=== PATIENT | male | born 1975 | race African-American/Black ===

== ENCOUNTER 2017-03-16 07:19 | Emergency (ER) | payer SELFPAY ==
[~2017-03-16] VITALS: Ht 180.3 cm; Wt 90.7 kg
[~2017-03-16 07:19] MED LIST: CIPROFLOXACIN500 M2 ORAL; IBUPROFEN600 MG ORAL; IBUPROFEN800 MG ORAL; MILK OF MA400 MG/51 ORAL; NEXIUM40 M2 ORAL; NKM; TIZANIDINE HCL4 MG ORAL; TRAMADOL HCL50 MG ORAL
--- NOTE | 2017-03-16 08:08 | Emergency Room Report ---
History of Present Illness General Chief Complaint: Pain Source: Patient Present Illness HPI 42-year-old male, history of appendectomy, presenting with right groin pain for 2 days. Patient states that he has had intense nausea, which exacerbates the pain. No active vomiting. No constipation or diarrhea. Complains of chills but no fever. Please see her right groin area for the pain, sharp, intermittent. States that his urine looked slightly darker than normal. Denies any flank pain, no penile discharge. Denies seeing any bulge Allergies: Coded Allergies: No Known Allergies (Unverified , 12/22/12) Patient History Past Medical History: see triage record Past Surgical History: none Pertinent Family History: none Reviewed Nursing Documentation: PMH: Agreed, PSxH: Agreed Nursing Documentation-PMH Past Medical History: No History, Except For Hx Cardiac Problems: Yes - heart valve surgery Hx Hypertension: No Hx Pacemaker: No Hx Asthma: No Hx COPD: No Hx Diabetes: No Hx Cancer: No Hx Gastrointestinal Problems: No Hx Dialysis: No History Of Psychiatric Problem: No Hx Neurological Problems: No Hx Cerebrovascular Accident: No Hx Seizures: No Review of Systems All Other Systems: negative except mentioned in HPI Physical Exam Vital Signs Date Time Temp Pulse Resp B/P (MAP) Pulse Ox O2 Delivery O2 Flow Rate FiO2 03/16/17 07:29 98.4 91 16 122/80 97 Room Air Sp02 EP Interpretation: reviewed, normal General Appearance: alert, GCS 15, non-toxic, moderate distress Head: normocephalic, atraumatic Eyes: bilateral eye normal inspection, bilateral eye PERRL, bilateral eye EOMI ENT: normal ENT inspection, normal pharynx, normal voice, moist mucus membranes Neck: normal inspection, full range of motion, supple Respiratory: normal inspection, lungs clear, normal breath sounds, no respiratory distress, no retraction, no wheezing, speaking full sentences, chest symmetrical Cardiovascular #1: normal inspection, regular rate, rhythm, no edema, normal capillary refill Cardiovascular #2: 2+ radial (R), 2+ radial (L) Gastrointestinal: other - mild suprapubic tenderness. no guarding or rigidity. nontender all other abdomen Genitourinary: no CVA tenderness, penis normal, scrotum normal, other - TTP R groin area, no signs of cellulitis, no fluctuance noted. no penile DC Musculoskeletal: normal inspection, back normal, normal range of motion, non- tender Neurologic: normal inspection, alert, oriented x3, responsive, motor strength/ tone normal, sensory intact, normal gait, speech normal Psychiatric: normal inspection, judgement/insight normal, memory normal Skin: normal inspection, normal color, no rash, warm/dry, well hydrated, normal turgor Medical Decision Making Diagnostic Impression: Primary Impression: Right groin pain ER Course 42-year-old male with right groin/abdominal pain, with nausea Differential Diagnosis: diverticulitis, SBO, UTI/pyelo, deep intra-abdominal abscess, hernia Plan: Basic labs, ua pain control, IVF CT abdopelvis ER course: Patient has remained stable during ED stay. Pain improved. CT neg Repeat abdominal exam is nontender. Tolerating PO Disposition: Patient is to be discharged to home. Patient is instructed to follow up with their primary care doctor within 5 days. May need to see water/wastewater engineer as well Strict return precautions discussed with patient such as fever, chills, worsening/severe abdominal pain, nausea, vomiting, black or bloody stools, which may indicate severe illness. Patient verbalizes understanding and agrees with plan. Please note that this Emergency Department Report was dictated using [employer] home admissions director technology software, occasionally this can lead to erroneous entry secondary to interpretation by the dictation equipment Laboratory Tests Test 03/16/17 08:00 03/16/17 08:45 White Blood Count 6.9 K/UL (4.8-10.8) Red Blood Count 5.48 M/UL (4.70-6.10) Hemoglobin 16.7 G/DL (14.2-18.0) Hematocrit 49.7 % (42.0-52.0) Mean Corpuscular Volume 91 FL (80-99) Mean Corpuscular Hemoglobin 30.4 PG (27.0-31.0) Mean Corpuscular Hemoglobin Concent 33.6 G/DL (32.0-36.0) Red Cell Distribution Width 11.1 % (11.6-14.8) L Platelet Count 273 K/UL (150-450) Mean Platelet Volume 6.3 FL (6.5-10.1) L Neutrophils (%) (Auto) 69.5 % (45.0-75.0) Lymphocytes (%) (Auto) 19.8 % (20.0-45.0) L Monocytes (%) (Auto) 7.8 % (1.0-10.0) Eosinophils (%) (Auto) 1.6 % (0.0-3.0) Basophils (%) (Auto) 1.3 % (0.0-2.0) Sodium Level 140 MMOL/L (136-145) Potassium Level 3.5 MMOL/L (3.5-5.1) Chloride Level 104 MMOL/L (98-107) Carbon Dioxide Level 23 MMOL/L (21-32) Anion Gap 13 mmol/L (5-15) Blood Urea Nitrogen 15 mg/dL (7-18) Creatinine 1.3 MG/DL (0.55-1.30) Estimate Glomerular Filtration Rate > 60 mL/min (>60) Glucose Level 92 MG/DL (74-106) Calcium Level 9.3 MG/DL (8.5-10.1) Total Bilirubin 1.2 MG/DL (0.2-1.0) H Direct Bilirubin 0.2 MG/DL (0.0-0.3) Aspartate Amino Transferase (AST) 21 U/L (15-37) Alanine Aminotransferase (ALT) 14 U/L (12-78) Alkaline Phosphatase 86 U/L (46-116) Total Protein 8.3 G/DL (6.4-8.2) H Albumin 4.5 G/DL (3.4-5.0) Globulin 3.8 g/dL Albumin/Globulin Ratio 1.2 (1.0-2.7) Lipase 62 U/L (73-393) L Urine Color Yellow Urine Appearance Clear Urine pH 5 (4.5-8.0) Urine Specific [place] 1.025 (1.005-1.035) Urine Protein 2+ (NEGATIVE) H Urine Glucose (UA) Negative (NEGATIVE) Urine Ketones 3+ (NEGATIVE) H Urine Occult Blood 1+ (NEGATIVE) H Urine Nitrite Negative (NEGATIVE) Urine Bilirubin 1+ (NEGATIVE) H Urine Ictotest Negative Urine Urobilinogen 4 MG/DL (0.0-1.0) H Urine Leukocyte Esterase 1+ (NEGATIVE) H Urine RBC 2-4 /HPF (0 - 0) H Urine WBC 2-4 /HPF (0 - 0) Urine Squamous Epithelial Cells Occasional /LPF Urine Bacteria Few /HPF (NONE) Urine Mucus Moderate /LPF (NONE/OCC) H CT/MRI/US Diagnostic Results CT/MRI/US Diagnostic Results : Imaging Test Ordered: CT abdo pelvis Impression Findings: Hiatal hernia is present. The lung bases are clear. Gallbladder is unremarkable. Solid organs are unremarkable. There is no hydronephrosis identified. No definite renal stones identified although intravenous contrast was given for the study. As such a small nonobstructive stones may be difficult to see. There is no free fluid. No evidence of bowel obstruction. The appendix is not definitely seen but there are no secondary signs of acute appendicitis. The urinary bladder is nondistended. IMPRESSION: No acute findings identified. Incidentals as above Last Vital Signs Date Time Temp Pulse Resp B/P (MAP) Pulse Ox O2 Delivery O2 Flow Rate FiO2 03/16/17 07:29 98.4 91 16 122/80 97 Room Air Disposition: HOME, SELF-CARE Condition: Improved Scripts Ondansetron Odt* (ZOFRAN ODT*) 4 Mg Tab.rapdis 4 MG ORAL Q6H Y for Nausea & Vomiting, #15 TAB 0 Refills Prov: Xiao Benoit M.D. 03/16/17 Referrals: NOT CHOSEN KOREY/,REFERRING (PCP) Xiao Benoit M.D. Mar 16, 2017 08:08
[2017-03-16 08:22] LABS: BASOPHILS % (AUTO) 1.3 % (0.0-2.0); EOSINOPHILS % (AUTO) 1.6 % (0.0-3.0); HEMATOCRIT 49.7 % (42.0-52.0); HEMOGLOBIN 16.7 G/DL (14.2-18.0); LYMPHOCYTES % (AUTO) 19.8 % (20.0-45.0); MEAN CORPUSCULAR VOLUME 91 FL (80-99); MONOCYTES % (AUTO) 7.8 % (1.0-10.0); NEUTROPHILS % (AUTO) 69.5 % (45.0-75.0); PLATELET COUNT 273 K/UL (150-450); RED BLOOD COUNT 5.48 M/UL (4.70-6.10); RED CELL DISTRIBUTION WIDTH 11.1 % (11.6-14.8); WHITE BLOOD COUNT 6.9 K/UL (4.8-10.8)
[2017-03-16 08:32] LABS: ANION GAP 13 mmol/L (5-15); BLOOD UREA NITROGEN 15 mg/dL (7-18); CALCIUM 9.3 MG/DL (8.5-10.1); CARBON DIOXIDE 23 MMOL/L (21-32); CHLORIDE 104 MMOL/L (98-107); CREATININE 1.3 MG/DL (0.55-1.30); POTASSIUM 3.5 MMOL/L (3.5-5.1); SODIUM 140 MMOL/L (136-145)
[2017-03-16 08:43] LABS: ALANINE AMINOTRANSFERASE 14 U/L (12-78); ALBUMIN 4.5 G/DL (3.4-5.0); ALBUMIN/GLOBULIN RATIO 1.2 (1.0-2.7); ALKALINE PHOSPHATASE 86 U/L (46-116); ASPARTATE AMINO TRANSFERASE 21 U/L (15-37); BILIRUBIN,TOTAL 1.2 MG/DL (0.2-1.0)
[2017-03-16 08:44] LABS: BILIRUBIN,DIRECT 0.2 MG/DL (0.0-0.3)
[2017-03-16 09:24] LABS: APPEARANCE,URINE CLEAR; BILIRUBIN, URINE 1+ (NEGATIVE); GLUCOSE, URINE (UA) NEGATIVE (NEGATIVE); KETONES,URINE 3+ (NEGATIVE); LEUKOCYTE ESTERASE ,URINE 1+ (NEGATIVE); NITRITE,URINE NEGATIVE (NEGATIVE); PH,URINE 5 (4.5-8.0); PROTEIN,URINE 2+ (NEGATIVE); UROBILINOGEN,URINE 4 MG/DL (0.0-1.0)
[2017-03-16 09:33] LABS: COLOR,URINE YELLOW
--- NOTE | 2017-03-16 09:36 | Diagnostic Imaging Report ---
Indication: Abdominal pain Technique: Continuous helical transaxial imaging of the abdomen and pelvis was obtained from the lung bases to the pubic symphysis during intravenous contrast administration. Coronal 2-D reformats were also obtained. Study obtained in a Siemens sensation [address] Automatic Exposure Control was utilized. Total Dose length Product (DLP): 1018.[address] Dose Index Volume (CTDIvol): 18.4 mGy Comparison: None Findings: Hiatal hernia is present. The lung bases are clear. Gallbladder is unremarkable. Solid organs are unremarkable. There is no hydronephrosis identified. No definite renal stones identified although intravenous contrast was given for the study. As such a small nonobstructive stones may be difficult to see. There is no free fluid. No evidence of bowel obstruction. The appendix is not definitely seen but there are no secondary signs of acute appendicitis. The urinary bladder is nondistended. IMPRESSION: No acute findings identified. Incidentals as above The CT scanner at [facility] is accredited by the [employer] and the scans are performed using dose optimization techniques as appropriate to a performed exam including Automatic Exposure control.
[2017-03-16] MEDS ORDERED: ZOFRAN ODT4 MG ORAL (10:19)
[2017-03-16 10:38] VITALS: BP 116/72
[2017-03-16 10:39] VITALS: BP 116/72
== END 2017-03-16 10:39 | disposition home or self-care (01) ==
LOC: EMR 07:42
DX: R10.31 Right lower quadrant pain (principal); R11.0 Nausea; K44.9 Diaphragmatic hernia without obstruction or gangrene
CPT/HCPCS: 36415; 74177; 80053; 81003; 82248; 83690; 85025; 96374; 99284; J2405; Q9967

== ENCOUNTER 2018-02-17 22:14 | Emergency (ER) | payer BC, OTHER ==
[~2018-02-17] VITALS: Ht 177.8 cm; Wt 113.4 kg
[~2018-02-17 22:14] MED LIST changes: +ZOFRAN ODT4 MG ORAL
[2018-02-17 22:25] VITALS: BP 116/81
[2018-02-17] MEDS: Solu-MEDROL 125mg Inj IVP ONE (22:30)
[2018-02-17] MEDS: DiphenhydrAMINE 50mg/ml Inj IVP ONE (22:30)
--- NOTE | 2018-02-17 22:31 | Emergency Room Report ---
History of Present Illness General Chief Complaint: Sore Throat Source: Patient Present Illness HPI Is a 43-year-old male with a history of reflux. He presents with chief complaint of sore throat difficulty breathing. Onset was acute and occurred about 2 hours ago. This occurred after eating a chicken salad from a supermarket. He said his nose felt very stuffy. He has stuffiness and swelling of his eyelids. Also has some difficulty breathing with sore throat. He felt some swelling to the oropharynx. No nausea no vomiting. No fever or chills. Denies any other complaint. Had this type of chicken salad before without any difficulty. Allergies: Coded Allergies: No Known Allergies (Unverified , 12/22/12) Patient History Past Medical History: see triage record, old chart reviewed Past Surgical History: none Pertinent Family History: none Social History: Denies: smoking Immunizations: other Reviewed Nursing Documentation: PMH: Agreed; PSxH: Agreed Nursing Documentation-PMH Past Medical History: No History, Except For Hx Cardiac Problems: Yes - heart valve surgery Hx Hypertension: No Hx Pacemaker: No Hx Asthma: No Hx COPD: No Hx Diabetes: No Hx Cancer: No Hx Gastrointestinal Problems: No Hx Dialysis: No Hx Neurological Problems: No Hx Cerebrovascular Accident: No Hx Seizures: No Review of Systems Eye: Denies: eye pain, blurred vision ENT: Reports: nose congestion; Denies: ear pain, throat swelling Respiratory: Reports: shortness of breath; Denies: cough Cardiovascular: Denies: chest pain, palpitations Gastrointestinal: Denies: abdominal pain, diarrhea, nausea, vomiting Musculoskeletal: Denies: back pain, joint pain Skin: Denies: rash Neurological: Denies: headache, numbness Endocrine: Denies: increased thirst, increased urine Hematologic/Lymphatic: Denies: easy bruising All Other Systems: negative except mentioned in HPI Physical Exam Vital Signs Date Time Temp Pulse Resp B/P (MAP) Pulse Ox O2 Delivery O2 Flow Rate FiO2 02/17/18 22:19 97.9 85 16 126/81 97 Room Air vitals normal Sp02 EP Interpretation: reviewed, normal General Appearance: well appearing, no apparent distress, alert Head: normocephalic, atraumatic Eyes: bilateral eye PERRL, bilateral eye EOMI, bilateral eye other - Puffiness to both eyelids ENT: hearing grossly normal, normal pharynx, other - Mild edema to the soft palate Neck: full range of motion, supple, no meningismus, other - No stridor Respiratory: chest non-tender, lungs clear, normal breath sounds Cardiovascular #1: regular rate, rhythm, no murmur Gastrointestinal: normal bowel sounds, non tender, no mass, no organomegaly, no bruit, non-distended Musculoskeletal: back normal, gait/station normal, normal range of motion Neurologic: alert, oriented x3 Psychiatric: mood/affect normal Skin: warm/dry Medical Decision Making Diagnostic Impression: Primary Impression: Food allergy ER Course Patient with acute swelling to the facial area, congestion and sorethroat. This occurred after eating chicken salad. This is most likely a food allergy. He is better after steroid and Benadryl. No evidence of anaphylaxis. No evidence of respiratory distress or stridor. We'll discharge home. Last Vital Signs Date Time Temp Pulse Resp B/P (MAP) Pulse Ox O2 Delivery O2 Flow Rate FiO2 02/17/18 22:19 97.9 85 16 126/81 97 Room Air Status: improved Disposition: HOME, SELF-CARE Condition: Stable Scripts Prednisone* (PREDNISONE*) 20 Mg Tablet 40 MG ORAL DAILY, #6 TAB Prov: Albino Black MD 02/17/18 Diphenhydramine Hcl* (BENADRYL*) 25 Mg Capsule 50 MG ORAL Q6H PRN for Itching, #30 CAP Prov: Albino Black MD 02/17/18 Additional Instructions: Follow-up with your Dr. in 7 days. You may need for allergy testing. Return if symptom worsen. Albino Black MD Feb 17, 2018 22:31
[2018-02-17] MEDS ORDERED: PREDNISONE20 MG ORAL (23:27)
[2018-02-17] MEDS ORDERED: BENADRYL25 MG ORAL (23:27)
[2018-02-17 23:33] VITALS: BP 116/81
== END 2018-02-17 23:33 | disposition home or self-care (01) ==
LOC: EMR 22:34
DX: T78.1XXA Other adverse food reactions, not elsewhere classified, initial encounter (principal); R68.89 Other general symptoms and signs; X58.XXXA Exposure to other specified factors, initial encounter
CPT/HCPCS: 96374; 96375; 99284; J1200; J2930

== ENCOUNTER 2018-07-06 23:45 | Emergency (ER) | payer BC, OTHER ==
[~2018-07-06] VITALS: Ht 177.8 cm; Wt 117.9 kg
[~2018-07-06 23:45] MED LIST changes: +BENADRYL25 MG ORAL; +PREDNISONE20 MG ORAL
[2018-07-07 00:03] VITALS: BP 143/80
--- NOTE | 2018-07-07 00:05 | NUR ---
ED Nurse Note: Patient walked in to ER from home, c/o pain in both eyes. AAO x4, VSS.
--- NOTE | 2018-07-07 00:09 | NUR ---
ED Nurse Note: ER MD at bed side
--- NOTE | 2018-07-07 00:11 | NUR ---
ED Nurse Note: Unable to check visual acuity, due to patient unable open his eyes.
[2018-07-07] MEDS ORDERED: Tetracaine 0.5% Opth 4ml Soln LEFT EYE ONE (00:15)
[2018-07-07] MEDS ORDERED: Tetracaine 0.5% Opth 4ml Soln RIGHT EYE ONE (00:15)
[2018-07-07] MEDS ORDERED: HYDROCODON-ACE1 EA15 ORAL (00:16)
[2018-07-07] MEDS ORDERED: POLYTRIM OP SOL10 ML OPHTHALM (00:16)
[2018-07-07] MEDS ORDERED: IBUPROFEN600 MG ORAL (00:16)
--- NOTE | 2018-07-07 00:16 | Emergency Room Report ---
History of Present Illness General Chief Complaint: Eye Problems Source: Patient Present Illness HPI Is a 43-year-old male who presents with chief complaint of bilateral eye pain and injection. Onset about an hour to 2 hours ago. He said it was eye was irritated and injected. He used some Visine in it got worse. Worse with opening his eyes. Eyes watery. No nausea no vomiting but no fever or chills. No cough or congestion. Pain is 10 out of 10. Allergies: Coded Allergies: No Known Allergies (Unverified , 12/22/12) Patient History Past Medical History: see triage record, old chart reviewed Past Surgical History: none Pertinent Family History: none Social History: Denies: smoking Immunizations: other Reviewed Nursing Documentation: PMH: Agreed; PSxH: Agreed Nursing Documentation-PMH Hx Cardiac Problems: Yes - heart valve surgery Hx Hypertension: No Hx Pacemaker: No Hx Asthma: No Hx COPD: No Hx Diabetes: No Hx Cancer: No Hx Gastrointestinal Problems: No Hx Dialysis: No Hx Neurological Problems: No Hx Cerebrovascular Accident: No Hx Seizures: No Review of Systems Eye: Reports: eye pain; Denies: blurred vision ENT: Denies: ear pain, nose congestion, throat swelling Respiratory: Denies: cough, shortness of breath Cardiovascular: Denies: chest pain, palpitations Gastrointestinal: Denies: abdominal pain, diarrhea, nausea, vomiting Musculoskeletal: Denies: back pain, joint pain Skin: Denies: rash Neurological: Denies: headache, numbness Endocrine: Denies: increased thirst, increased urine Hematologic/Lymphatic: Denies: easy bruising All Other Systems: negative except mentioned in HPI Physical Exam Vital Signs Date Time Temp Pulse Resp B/P (MAP) Pulse Ox O2 Delivery O2 Flow Rate FiO2 07/06/18 23:53 97.5 102 18 95 Room Air 07/07/18 00:03 143/80 vitals with high blood pressure Sp02 EP Interpretation: reviewed, normal General Appearance: well appearing, no apparent distress, alert Head: normocephalic, atraumatic Eyes: bilateral eye PERRL, bilateral eye EOMI, bilateral eye other - Both eyes show injected sclera and conjunctiva. Pupil reactive. No foreign body. Negative Neha sign. ENT: hearing grossly normal, normal pharynx Neck: full range of motion, supple, no meningismus Respiratory: chest non-tender, lungs clear, normal breath sounds Cardiovascular #1: regular rate, rhythm, no murmur Gastrointestinal: normal bowel sounds, non tender, no mass, no organomegaly, no bruit, non-distended Musculoskeletal: back normal, gait/station normal, normal range of motion Psychiatric: mood/affect normal Skin: warm/dry Medical Decision Making Diagnostic Impression: Primary Impression: Conjunctivitis, acute Qualified Codes: H10.33 - Unspecified acute conjunctivitis, bilateral Additional Impression: Acute eye pain ER Course Patient with bilateral conjunctivitis. Most likely viral in nature. Could also be connective-tissue disease. No evidence of foreign body. No evidence of any globe rupture. We'll discharge home. Last Vital Signs Date Time Temp Pulse Resp B/P (MAP) Pulse Ox O2 Delivery O2 Flow Rate FiO2 07/07/18 00:03 97.5 18 143/80 95 Room Air 07/06/18 23:53 102 Status: improved Disposition: HOME, SELF-CARE Condition: Stable Scripts Polymyxin/Trimethoprim (Polytrim Eye Drops) 10 Ml Drops 2 DROP OPHTHALM THREE TIMES A DAY, #1 EA Instill in affected eye for 7 days Prov: Albino Black MD 07/07/18 Ibuprofen* (MOTRIN*) 600 Mg Tablet 600 MG ORAL THREE TIMES A DAY, #30 TAB 0 Refills Prov: Albino Black MD 07/07/18 Hydrocodone/Acetaminophen 5-325* (HYDROCODONE/ACETAMINOPHEN 5-325*) 1 Each Tablet 1 TAB ORAL Q6H PRN for For Pain, #10 TAB 0 Refills Prov: Albino Black MD 07/07/18 Patient Instructions: Bacterial Conjunctivitis, [id number] Additional Instructions: Do not rub eyes. Do not use Visine. Follow-up with your doctor in 2-3 days if not better. May knee referred to see an eye doctor. Return if worse. Albino Black MD July 07, 2018 00:16
[2018-07-07 00:17] VITALS: BP 143/80
--- NOTE | 2018-07-07 00:18 | NUR ---
ED Nurse Note: Pt cleared by health care Provider for discharge. DC instructions/prescription was given and explained to pt and verbalized understanding of teachings. All medical deviecs such as ID band removed. Pt is AAO x4, ambulatory and left with all personal belongings.
[2018-07-07] MEDS ORDERED: HYDROcodone/Acetamin 5/325 tab ORAL ONE (00:30)
== END 2018-07-07 00:17 | disposition home or self-care (01) ==
LOC: EMR 23:59
DX: H10.33 Unspecified acute conjunctivitis, bilateral (principal); H57.13 Ocular pain, bilateral
CPT/HCPCS: 99282

== ENCOUNTER 2019-01-27 13:16 | Emergency (ER) | payer BC, OTHER ==
[~2019-01-27] VITALS: Ht 177.8 cm; Wt 113.4 kg
[~2019-01-27 13:16] MED LIST changes: +HYDROCODON-ACE1 EA15 ORAL; +POLYTRIM OP SOL10 ML OPHTHALM
[2019-01-27 13:40] VITALS: BP 151/90
--- NOTE | 2019-01-27 13:40 | NUR ---
ED Nurse Note:pt. c/o urinary burning for 1 week, urine sent to labs
[2019-01-27 13:46] LABS: APPEARANCE,URINE CLEAR; BILIRUBIN, URINE NEGATIVE (NEGATIVE); GLUCOSE, URINE (UA) NEGATIVE (NEGATIVE); KETONES,URINE NEGATIVE (NEGATIVE); LEUKOCYTE ESTERASE ,URINE 1+ (NEGATIVE); NITRITE,URINE NEGATIVE (NEGATIVE); PH,URINE 6 (4.5-8.0); PROTEIN,URINE NEGATIVE (NEGATIVE); UROBILINOGEN,URINE 1 MG/DL (0.0-1.0)
[2019-01-27 13:53] LABS: COLOR,URINE YELLOW
--- NOTE | 2019-01-27 14:07 | Emergency Room Report ---
History of Present Illness General Chief Complaint: Male Urogenital Problems Source: Patient Present Illness HPI 44-year-old male with no significant past medical history here complaining of 1 week of urinary frequency and urgency and dysuria. Denies hematuria, suprapubic pain, scrotal pain, flank pain, fever and chills, nausea vomiting. Reports that he is sexually active with the same partner and denies penile discharge. Denies chest pain, shortness of breath, diffuse abdominal pain, palpitation, no other associated symptoms. Has not taken medication for symptom relief. Allergies: Coded Allergies: No Known Allergies (Unverified , 12/22/12) Patient History Past Medical History: see triage record Past Surgical History: unable to obtain Pertinent Family History: none Immunizations: UTD Reviewed Nursing Documentation: PMH: Agreed; PSxH: Agreed Nursing Documentation-PMH Past Medical History: No History, Except For Hx Cardiac Problems: Yes - heart valve surgery Hx Hypertension: No Hx Pacemaker: No Hx Asthma: No Hx COPD: No Hx Diabetes: No Hx Cancer: No Hx Gastrointestinal Problems: No Hx Dialysis: No Hx Neurological Problems: No Hx Cerebrovascular Accident: No Hx Seizures: No Review of Systems All Other Systems: negative except mentioned in HPI Physical Exam Vital Signs Date Time Temp Pulse Resp B/P (MAP) Pulse Ox O2 Delivery O2 Flow Rate FiO2 01/27/19 13:21 98.4 110 17 151/90 (110) 99 Room Air Sp02 EP Interpretation: reviewed, normal General Appearance: no apparent distress, alert, GCS 15, non-toxic Head: normocephalic, atraumatic Eyes: bilateral eye normal inspection, bilateral eye PERRL ENT: hearing grossly normal, normal pharynx, no angioedema, normal voice Neck: full range of motion, supple/symm/no masses Respiratory: chest non-tender, lungs clear, normal breath sounds, no wheezing, speaking full sentences Cardiovascular #1: regular rate, rhythm, no edema, no murmur Gastrointestinal: non tender, soft, no mass, no guarding Genitourinary: no CVA tenderness Musculoskeletal: back normal Neurologic: alert, motor strength/tone normal, oriented x3, sensory intact, responsive, speech normal Psychiatric: judgement/insight normal, memory normal, mood/affect normal, no suicidal/homicidal ideation Skin: no rash Lymphatic: no adenopathy Medical Decision Making PA Attestation All my diagnosis and treatment plans were reviewed ad discussed with my supervising physician Dr. Levin Diagnostic Impression: Primary Impression: UTI (urinary tract infection) ER Course 44-year-old male with no significant past medical history here complaining of 1 week of urinary frequency and urgency and dysuria. Denies hematuria, suprapubic pain, scrotal pain, flank pain, fever and chills, nausea vomiting. Reports that he is sexually active with the same partner and denies penile discharge. Denies chest pain, shortness of breath, diffuse abdominal pain, palpitation, no other associated symptoms. Has not taken medication for symptom relief. Ddx considered but are not limited to: UTI, pyelonephritis, urinary incontinence , prolapsed bladder, BPH Vital signs: are WNL, pt. is afebrile H&PE are most consistent with: UTI ORDERS: UA, urine cx, Keflex ED INTERVENTIONS: None required at this time. DISCHARGE: At this time pt. is stable for d/c to home. Will provide printed patient care instructions, and any necessary prescriptions. Care plan and follow up instructions have been discussed with the patient prior to discharge. Patient to take medication as directed, follow with her primary care provider , referral to urologist may be needed. Patient refuses prophylactic treatment for possible sexually transmitted diseases Last Vital Signs Date Time Temp Pulse Resp B/P (MAP) Pulse Ox O2 Delivery O2 Flow Rate FiO2 01/27/19 13:40 98.4 17 151/90 99 Room Air 01/27/19 13:21 110 Disposition: HOME, SELF-CARE Condition: Stable Scripts Cephalexin* (KEFLEX*) 500 Mg Capsule 500 MG ORAL EVERY 6 HOURS for 7 Days, #28 CAP Prov: Diane Marques 01/27/19 Patient Instructions: Urinary Tract Infection Additional Instructions: Take medication as directed, follow-up with your primary care provider, if symptoms continue to be bothersome, you need a referral to urologist Diane Marques Jan 27, 2019 14:07
[2019-01-27] MEDS ORDERED: CEPHALEXIN500 MG ORAL (14:08)
--- NOTE | 2019-01-27 14:20 | NUR ---
ER DISCHARGE NOTE: Patient is cleared to be discharged per ERMD, pt is aox4, on room air, with stable vital signs. pt was given dc and prescription instructions, pt was able to verbalize understanding, pt is able to ambulate with steady gait. pt took all belongings.
[2019-01-27 15:20] VITALS: BP 151/90
== END 2019-01-27 14:20 | disposition home or self-care (01) ==
LOC: EMR 14:10
DX: N39.0 Urinary tract infection, site not specified (principal)
CPT/HCPCS: 81003; 99282

== ENCOUNTER 2019-02-02 07:24 | Emergency (ER) | payer BC, OTHER ==
[~2019-02-02] VITALS: Ht 180.3 cm; Wt 113.4 kg
[~2019-02-02 07:24] MED LIST changes: +CEPHALEXIN500 MG ORAL
[2019-02-02 07:47] VITALS: BP 120/73
--- NOTE | 2019-02-02 07:48 | NUR ---
ED Nurse Note: Patient walked in to ER from home due to pain to urinate. pt denied scrotum swelling or discharge from penis. Patient alert and oriented x4 and ambulatory. Calm and cooperative. No cardiac or pulmonary distress noted at this time. pt has visited [facility] on 01/27/19 for the same symptom and taking ABT and 2 more pills to finish but came back today for the pain which has not been improved.
--- NOTE | 2019-02-02 07:51 | NUR ---
ED Nurse Note: urine sent to lab.
[2019-02-02] MEDS ORDERED: Azithromycin 250mg tab ORAL ONE (08:15)
[2019-02-02] MEDS ORDERED: Lidocaine 1% MPF 10mg/ml 5ml INJ ONE (08:15)
--- NOTE | 2019-02-02 08:18 | Emergency Room Report ---
History of Present Illness General Chief Complaint: Male Urogenital Problems Source: Patient, Medical Record Present Illness HPI 44-year-old male presenting with constant dysuria for 10 days with similar complaints last week. Symptoms described as burning in nature. Patient was treated with Keflex. He is almost done with the antibiotics and reports no improvement with his symptoms. Patient states his burning starts at the end of his urination. He denies any abdominal pain. He denies any fevers, chills, nausea, vomiting, back pain, penile discharge. Patient has the same sexual partner for many years he is not concerned for gonorrhea or chlamydia. However he is amenable to treatment at this time as is pain not getting better past medical history significant for heart valve surgery. Allergies: Coded Allergies: No Known Allergies (Unverified , 12/22/12) Nursing Documentation-[facility] Hx Cardiac Problems: Yes - heart valve surgery Hx Hypertension: No Hx Pacemaker: No Hx Asthma: No Hx COPD: No Hx Diabetes: No Hx Cancer: No Hx Gastrointestinal Problems: No Hx Dialysis: No Hx Neurological Problems: No Hx Cerebrovascular Accident: No Hx Seizures: No Review of Systems Constitutional: Denies: chills, fever Respiratory: Denies: cough, shortness of breath Cardiovascular: Denies: chest pain, palpitations Gastrointestinal: Denies: diarrhea, vomiting Genitourinary: Reports: dysuria; Denies: hematuria, pain Musculoskeletal: Denies: back pain, joint swelling Skin: Denies: rash, lesions Neurological: Denies: headache, dizziness Physical Exam Vital Signs Date Time Temp Pulse Resp B/P (MAP) Pulse Ox O2 Delivery O2 Flow Rate FiO2 02/02/19 07:38 98.4 84 15 120/73 (89) 97 Room Air Sp02 EP Interpretation: reviewed General Appearance: well appearing, no apparent distress, non-toxic Head: normocephalic, atraumatic Eyes: bilateral eye normal inspection ENT: hearing grossly normal, EOM grossly intact, moist mucus membranes Neck: supple Respiratory: lungs clear, normal breath sounds, no respiratory distress, speaking full sentences Cardiovascular #1: regular rate, rhythm, normal capillary refill Cardiovascular #2: 2+ radial (R), 2+ radial (L) Gastrointestinal: non tender, soft, non-distended, no guarding, no rebound Rectal: deferred Genitourinary: normal inspection, no CVA tenderness, penis normal Musculoskeletal: moves extm spontaneously, no lower extremity edema Neurologic: grossly normal Psychiatric: mood/affect normal Skin: warm/dry, normal turgor Medical Decision Making Diagnostic Impression: Primary Impression: Dysuria ER Course 44-year-old male presenting with 10 days of dysuria. Not improving with outpatient treatment with Keflex. Patient denies any STI however is willing to be treated at this time. Differential includes complicated UTI, STI, We will give ceftriaxone and azithromycin to cover for gonorrhea and chlamydia. Recommend getting outpatient STI testing. Will repeat urinalysis. Reviewed old urine culture with no growth up to 48 hours. Laboratory Tests Test 02/02/19 07:40 Urine Color Pale yellow Urine Appearance Clear Urine pH 6 (4.5-8.0) Urine Specific [place] 1.015 (1.005-1.035) Urine Protein Negative (NEGATIVE) Urine Glucose (UA) Negative (NEGATIVE) Urine Ketones Negative (NEGATIVE) Urine Blood Negative (NEGATIVE) Urine Nitrite Negative (NEGATIVE) Urine Bilirubin Negative (NEGATIVE) Urine Urobilinogen 1 MG/DL (0.0-1.0) H Urine Leukocyte Esterase Negative (NEGATIVE) Lab Results Impression Negative urinalysis Last Vital Signs Date Time Temp Pulse Resp B/P (MAP) Pulse Ox O2 Delivery O2 Flow Rate FiO2 02/02/19 09:12 98.1 84 15 126/81 100 Room Air Status: improved Reevaluation Impression Patient's lab testing reviewed. No signs of urinary tract infection at this time. Will patient has no concern for STI will treat empirically as patient has persistent dysuria despite outpatient antibiotics. Recommended close follow -up with urologist. Patient understands that he can return to emergency room if symptoms are not improving or any new symptoms. Disposition: HOME, SELF-CARE Condition: Stable Referrals: Tom Rodas MD Patient Instructions: Urethritis, Adult Additional Instructions: Please follow-up with urologist as soon as possible. Return to emergency room if any worsening symptoms or new symptoms start Rajendra Mason M.D. Feb 02, 2019 08:18
[2019-02-02 08:38] LABS: APPEARANCE,URINE CLEAR; BILIRUBIN, URINE NEGATIVE (NEGATIVE); COLOR,URINE PALE YELLOW; GLUCOSE, URINE (UA) NEGATIVE (NEGATIVE); KETONES,URINE NEGATIVE (NEGATIVE); LEUKOCYTE ESTERASE ,URINE NEGATIVE (NEGATIVE); NITRITE,URINE NEGATIVE (NEGATIVE); PH,URINE 6 (4.5-8.0); PROTEIN,URINE NEGATIVE (NEGATIVE); UROBILINOGEN,URINE 1 MG/DL (0.0-1.0)
[2019-02-02 09:12] VITALS: BP 126/81
--- NOTE | 2019-02-02 09:13 | NUR ---
ED Nurse Note: Pt cleared by health care Provider for discharge. DC instructions/urologist referral was given and explained to pt and verbalized understanding of teachings. All medical deviecs such as ID band removed. Pt is AAO x4, ambulatory and left with all personal belongings.
== END 2019-02-02 09:13 | disposition home or self-care (01) ==
LOC: EMR 08:10
DX: R30.0 Dysuria (principal)
CPT/HCPCS: 81003; 96372; 99283; J0696